=== PATIENT | female | born 1995 | race Hispanic/Latino ===

== ENCOUNTER 2024-12-02 09:35 | Day surgery (SDC) | payer OTHER, SELFPAY ==
[2024-11-26 14:52] VITALS: BMI 42.1
[2024-11-26 15:00] VITALS: BMI 42.1
[2024-12-02] VITALS (11 sets, daily range): BP systolic 113–135; BP diastolic 73–86; PULSE 83–102; RESP 12–22; TEMP 35.8–36.8; O2SAT 95–100; BMI 42.1
--- NOTE | 2024-12-02 | PATH_ITS ---
[facility] Accession Number: [id number] No. of containers..01 Tissue . 01 Material submitted: . uterus - UTERUS, BILATERAL FALLOPIAN TUBES . 01 Diagnosis: UTERUS AND BILATERAL FALLOPIAN TUBES; HYSTERECTOMY AND BILATERAL SALPINGECTOMY: Uterine weight: 520 grams. Mixed phase endometrium. - Negative for hyperplasia, atypia, or malignancy. Benign leiomyomas up to 4.4 cm in greatest diameter, without significant cytologic atypia, increased cellularity, increased mitotic activity, or necrosis. Benign bilateral fallopian tubes. - Negative for atypia or malignancy. [facility] 12/05/2024 1557 Local . 01 Electronically signed: . Edi Alberto MD, Pathologist NPI- [id number] . 01 Gross description: . Received in formalin labeled with two patient identifiers and uterus, bilateral fallopian tubes, and consists of a morcellated uterus with two detached fallopian tubes, one of which has a fimbriated end. The uterine corpus is severely fragmented and aggregates 18.5 x 17.2 x 6.5 cm (520 grams). No cervix is identified. The tissue fragments are partially surfaced by a pastrana-pink, smooth, glistening, slightly nodular, serosal surface. The myometrium is severely fragmented measuring up to 2.1 cm in thickness with multiple, white, whorled, well-circumscribed nodules ranging from 0.4 to 4.4 cm in greatest dimension. The nodules replace approximately 85% of the myometrial parenchyma. Further sectioning of the nodules shows no areas of cystic changes or necrosis. . Also received in the same container are two detached fallopian tubes. The first measures 5.2 cm in length by 0.4 cm in diameter and has a fimbriated end. Sectioning of the fallopian tube shows a 0.3 cm stellate lumen. The second detached fallopian tube is not fimbriated and has a 5.2 cm in lenght by 0.4 cm in diameter dimension. Sectioning shows a 0.3 cm stellate lumen. . Apparel Rental Clerk sections are submitted as labeled: A1-A2: Full thickness endomyometrium (composite section). A3: Full thickness endomyometrium. A4-A7: Apparel Rental Clerk sections of myometrial nodules (4 sections in each cassette). A8: Fimbriated fallopian tube 1 (fimbriated end entirely submitted). A9: Unfimbriated fallopian tube 2 sales representative trainee sections). ([id number]) /EDWIN 12/03/2024 0911 Local . 01 Pathologist provided ICD-10: D25.9, N94.10, Z30.432 . 01 CPT . 654716 Specimen Comment: A courtesy copy of this report has been sent to [phone] Performed at: [address] [facility] [address] [address], [place], [place] [id number] MD Solo Gómez MD Phone: [phone]
[2024-12-02] MEDS: LACTATED RINGERS 1,000 ML 21 ML IV ×3 (09:55→12:14)
--- NOTE | 2024-12-02 10:13 | PM.PREOP ---
Pre-operative Note Interval Note History & Physical reviewed/Exam performed by Physician: Yes Changes to H&P: No
[2024-12-02] MEDS: ACETAMINOPHEN 325 MG TABLET 975 MG PO (10:16)
[2024-12-02] MEDS: SCOPOLAMINE 1 PATCH TOP (10:16)
[2024-12-02] MEDS: CEFAZOLIN VIAL 3 GM in SODIUM CHLORIDE 0.9% 100 ML IV (10:44)
--- NOTE | 2024-12-02 11:25 | SUR.OPER ---
Lithotomy on padded OR bed. Ahtanum Pad Positioner under torso. Head on pillow, arms padded and tucked at sides. bed extension placed on bilateral sides. Legs secured in padded yellow fins stirrups.
[2024-12-02] MEDS: BUPIVACAINE 0.5% W/ EPI (PF) 30 ML VIAL INJ (11:37)
[2024-12-02] MEDS: ROPIVACAINE 0.2% PF 2 MG/ML 20ML AMP 20 ML INJ (12:24)
--- NOTE | 2024-12-02 12:26 | SUR.OPER ---
Verified with patient and surgeon prior to surgery about removal of IUD. Both patient and surgeon in agreement.
--- NOTE | 2024-12-02 13:17 | P.OP_ITS ---
Operative Date/Time/Diagnoses Date of procedure: 12/02/24 Time of procedure: 13:18 Pre-op diagnosis: Large uterine fibroids Post-op diagnosis: same Procedure & Clinicians Procedure: Laparoscopic supracervical hysterectomy with bilateral salpingectomy Same procedure as scheduled: Yes Indications: Pressure sensation from large uterine fibroids Surgeon: Orquidea Blackwood Purchasing Coordinator: Yelena Weston Click Yes if Unassisted: No Anesthesia Type: General Operative Notes Findings: Enlarged uterus with multiple uterine fibroids. Normal tubes and ovaries. No evidence of endometriosis. No scar tissue. Normal-appearing appendix. Normal bowel surface. Closure Type: primary Specimen(s): other (Uterus without the cervix) Estimated Blood Loss (mL): 400 Blood products transfused: none Procedure in detail: Patient is brought to the operating room where she underwent general anesthesia and placed in low [facility] stirrups. She was prepped and draped in the usual sterile fashion. A check list was reviewed with the staff in the room prior to beginning of the case. Patient had pulsatile stockings in place and functional. 3 g of Ancef were in prior to beginning of the case.. A Shultz catheter was placed. A single-tooth tenaculum was placed on the anterior lip of the cervix and the cervix dilated to a #6 Hegar dilator. The uterine manipulator was placed through the cervix into the uterus with the balloon inflated with 3 mL of air. The area of the umbilical incision and the 5 mm right and left lower quadrant incisions were injected with Marcaine. An incision was made with scalpel. A 5 mm trocar placed under direct visualization without difficulty. There did not appear to be any damage is placement of the trocar. The right and left lower quadrant incisions were made with the scalpel and the trochars placed without damage to internal structures. The power seal were used to cauterize the along the mesosalpinx followed by the round ligaments on both sides. The fallopian tubes were cauterized across the junction to the uterus and removed through the trocar. Sequential bites were taken down the broad ligaments. The uterine arteries were cauterized. An incision was made above the level bladder pushing the bladder away from the cervix. The FRANK loop was placed around the uterus and the uterus was amputated above the level of the bladder. Bleeding was controlled with the power seal. The cautery spatula was used to cauterize in the endocervical canal. A supracervical incision was made and an 11 mm port placed. A 15 mm Endo Catch bag was placed in the abdomen. The uterus was placed in the bag and brought up through the suprapubic port site. The Nathan O was placed. The uterus was hand morselized. The abdomen was reinsufflated and perclot was placed over the cervical stump so that adequate hemostasis was noted. The trochars were removed and the CO2 allowed escape from the abdomen. The fascia layer of the suprapubic site was repaired with 0 Polysorb suture. A subcutaneous stitch with 2 0 Vicryl was used to close the fat layer. Skin was closed with 4-0 Monocryl suture at the suprapubic site and the other 3 sites. The patient went to recovery room in good condition. Counts of instruments and sponges were correct. Dr. Weston was present throughout the case to assist with holding the camera, retracting, cauterizing and cutting the structures on the left side of the patient, as well as assisting with morselization of the uterus. Complications: none Post-operative Condition: stable Disposition: Acute Care Plan for aftercare: Monitor for any intra-abdominal bleeding. Home in a.m. if stable.
[2024-12-02] MEDS: OXYCODONE IR 5 MG TABLET PO ×3 (13:40→20:21)
[2024-12-02] MEDS: ACETAMINOPHEN 325 MG TABLET 650 MG PO ×2 (14:32→20:21)
[2024-12-02] MEDS: KETOROLAC 30 MG/ML VIAL IV (17:33)
[2024-12-02] MEDS: LACTATED RINGERS 1,000 ML 100 ML IV (19:30)
[2024-12-02] MEDS: DOCUSATE 100 MG CAPSULE 200 MG PO (20:20)
[2024-12-02] MEDS: MORPHINE 2 MG/ML INJ IV (21:50)
[2024-12-03] MEDS: KETOROLAC 30 MG/ML VIAL IV ×2 (00:02→05:28)
[2024-12-03] MEDS: OXYCODONE IR 5 MG TABLET PO ×4 (00:07→13:30)
[2024-12-03] MEDS: ACETAMINOPHEN 325 MG TABLET 650 MG PO ×2 (01:36→09:36)
[2024-12-03] MEDS: LACTATED RINGERS 1,000 ML 100 ML IV (05:27)
[2024-12-03 06:04] LABS: Add Manual Diff / Slide Review NO; Basophils Absolute Auto 0 /uL (0-100); Basophils Percent Auto 0.4 % (0-2); Eosinophils Absolute Auto 0 /uL (0-450); Eosinophils Percent Auto 0.2 % (2-4); Hematocrit 36.7 % (36-46); Hemoglobin 12.3 g/dL (12.0-16.0); Lymphocytes Absolute Auto 1800 /uL (1100-4500); Lymphocytes Percent Auto 18.6 % (25-40); Mean Corpuscular HGB Conc 33.4 % (30-36); Mean Corpuscular Hemoglobin 25.4 PG (26-34); Monocytes Absolute Auto 700 /uL (0-900); Monocytes Percent Auto 7.9 % (3-14); Neutrophils Absolute Auto 6900 /uL (1500-7000); Neutrophils Percent Auto 72.9 % (50-75); Platelet Count 214 X10^3/uL (150-400); Red Blood Cell Count 4.83 X10^6/uL (4.0-5.2); Red Cell Distribution Width 14.3 % (11.6-14.8); White Blood Cell Count 9.5 X10^3/uL (4.5-11.0)
--- NOTE | 2024-12-03 08:02 | PM.DS.IH.1 ---
History of Present Illness History of Present Illness Date Patient Seen: 12/03/24 Time Patient Seen: 08:02 Date of Onset of Symptoms: 12/02/24 Chief complaint: DEPORTATION EXAMINER *OPB* Narrative: Status post laparoscopic supracervical hysterectomy with bilateral salpingectomy Discharge Providers Provider Discharge Date: 12/03/24 Primary care physician: Cassius Grady MD Discharge provider: Orquidea Blackwood MD Summary Hospital Course Discharge Diagnosis: Uterine fibroids, status post laparoscopic supracervical hysterectomy Hospital Course: Patient underwent a laparoscopic supracervical hysterectomy with bilateral salpingectomy on 12/02/2024 Status at Discharge Cognitive/behavioral status at discharge: oriented Functional status at discharge: independent ambulation Overall status at discharge: patient is progressing back to baseline Time Spent with Patient Time spent: Less than 30 minutes Exam Vital Signs (past 8 hours): Oxygen Delivery Method Room Air Oxygen Flow Rate 0 Narrative Exam Narrative: Patient's abdomen is soft, with minimal tenderness. Her incisions are clean, dry, intact. Extremities without edema and nontender. Objective Labs 12/03/24 05:20 Labs: Laboratory Results - last 24 hr 12/03/24 05:20 WBC 9.5 RBC 4.83 Hgb 12.3 Hct 36.7 MCV 76.0 L MCH 25.4 L MCHC 33.4 RDW 14.3 Plt Count 214 Neut % (Auto) 72.9 Lymph % (Auto) 18.6 L Whiteside % (Auto) 7.9 Eos % (Auto) 0.2 L Baso % (Auto) 0.4 Neut # (Auto) 6900 Lymph # (Auto) 1800 Whiteside # (Auto) 700 Eos # (Auto) 0 Baso # (Auto) 0 PFSH Social History household members: family Smoking Status: Never smoker alcohol intake: never Discharge Assessment & Plan Assessment and Plan Assessment: Status post laparoscopic supracervical hysterectomy with bilateral salpingectomies stable. Plan of Treatment: Discharge home. Patient will be contacted by telephone on December 13 for postop appointment. She has a 6 week postop appointment scheduled. Precautions reviewed with the patient to call for fevers, bleeding, pain not controllable by pain medicine or any other concerns. Discharge Plan Discharge Plan Patient Disposition: Home Discharge orders & Medications Discharge Orders: Discharge (Order); Ordered 12/03/24 Ordered By: Orquidea Blackwood Prescriptions: Continued sumatriptan succinate 50 mg tablet 50 mg PO ONCE phentermine 37.5 mg capsule 37.5 mg PO DAILY Rx Instructions: must administer 30 minutes before or 1-2 hours after breakfast oxycodone 5 mg tablet 5 mg PO Q4H PRN (Reason: pain) Qty: 20 0RF Discontinued Mirena 21 mcg/24 hr (8 yrs) 52 mg intrauterine device 1 device intrauterine 1XD fluconazole 150 mg tablet 150 mg PO DAILY Follow up/Referrals: Cassius Grady MD [Primary Care Provider] - Orquidea Blackwood MD [Physician] - (Patient has a telehealth appointment on 12/13/2024, and 6 week postop appointment already scheduled) Diet/Activity/Treatments Diet: Regular Activity: Do not drive within 4 hours of taking narcotic pain medicine Skin/Wound/Dressing Care Report to your healthcare provider any signs of infection, such as:: chills, fever and increased pain Visit Report/Discharge Packet Instructions: DI for Hysterectomy, DI for Laparoscopy Stand Alone Forms: Patient Portal/API, Surgery Discharge Discharge Data Primary Care Provider: Cassius Grady Attending Provider: Orquidea Blackwood Quality VTE Deep Vein Thrombosis/Pulmonary Embolism Present on Admission: No IH PROFEE Charge Codes Discharge inpatient/observation: [id number]
[2024-12-03] MEDS: DOCUSATE 100 MG CAPSULE 200 MG PO (09:35)
--- NOTE | 2024-12-03 12:22 | CM.DANOTE ---
DCP Assessment note pt is a 29y F here POD 1 from lap hysterectomy with Dr. Blackwood. PCP Cassius Grady Paybrea Gomes healthy options and self pay RESEARCH CONSULTANT reviewed EMR. Per chart review, pt cleared to dc today home with family support and OP f/u. RESEARCH CONSULTANT met with pt in room. pt accompanied by mult family members at bedside. pt is indep/active at baseline. Lives with partner in [place]. Asked about the FMLA paperwork provider agreed to complete for partner to care for pt post op. RESEARCH CONSULTANT found FMLA paperwork in chart completed and handed to pt in room. Pt appreciative. Deny other needs/questions. P: No identified barriers to safe dc home with family support/to transport in POV and OP f/u at this time. CM team will continue to follow as needed BECKI Mosley Discharge Planning/Care Management CM Discharge Assessment Start: 12/03/24 12:19 Freq: Status: Active Protocol: Document 12/03/24 12:19 (Rec: 12/03/24 12:22 [id number]) Discharge Planning Assessment Assigned Cooker Sulfate BECKI Richard DPOA/Assigned Designee Name mother Kirkpatrick Contact Information [phone] Advance Directives? No History Provided By Patient,Family Member Prior Living Arrangements House Household Members significant other,family Type of transporation used prior to Drives own vehicle admit Independent with ADL's Yes Is patient alert and oriented? Yes Barriers to Discharge No Discharge Plan Home Transportation Arrangement family in POV Referrals Initiated None needed Review Status In Process Please Provide Date Initial DC 12/03/24 Assessment Was Performed Next Review Type Continued Stay Review Pre-Anesthesia Assessment Start: 11/26/24 14:52 Freq: Status: Active Protocol: Document 11/26/24 14:52 CAB (Rec: 11/26/24 14:59 CAB [id number]) Pre-Anesthesia Assessment PAC Comment Chart review 11/26/24 Patient Information Reviewed Via Chart Review Primary Care Provider Cassius Grady Seen Specialist in Last 12 Months Yes Specialist Seen Order Schedule Clerk Primary Language Sierra Leonean Painter Structural Steel Required No Height 172.72 cm Weight 125.645 kg Body Mass Index (BMI) 42.1 Anesthesia Review Requested No Core Blower No Smoking Status Current some day smoker History of Falling (Recent or History of No ) Patient is completely paralyzed or No completely immobile Mental Status Oriented to own ability Is patient on oxygen? No Currently Taking a Beta Alen No Anti-Coagulant Therapy No Bladder Pattern Incontinent, Stress Urinary Catheter Present No Hx Urinary Self Catheterization No Diabetes No Patient No Lactating No Comment LMP 11/18/24 Presence of External or Internal Medical Yes: IUD Devices Marital Status Unknown Patient Discharge Plan Description Return Home Document 11/26/24 15:00 CAB (Rec: 11/26/24 15:01 CAB [id number]) Pre-Anesthesia Assessment PAC Comment Chart review 11/26/24 Patient Information Reviewed Via Chart Review Primary Care Provider Cassius Grady Seen Specialist in Last 12 Months Yes Specialist Seen Order Schedule Clerk Primary Language [place] Leonean Painter Structural Steel Required No Height 172.72 cm Weight 125.645 kg Body Mass Index (BMI) 42.1 Anesthesia Review Requested No Core Blower No Smoking Status Current some day smoker History of Falling (Recent or History of No ) Patient is completely paralyzed or No completely immobile Mental Status Oriented to own ability Is patient on oxygen? No Currently Taking a Beta Alen No Anti-Coagulant Therapy No Bladder Pattern Incontinent, Stress Urinary Catheter Present No Hx Urinary Self Catheterization No Diabetes No Patient No Lactating No Comment LMP 11/18/24 Presence of External or Internal Medical Yes: IUD Devices Marital Status Unknown Patient Discharge Plan Description Return Home
--- NOTE | 2024-12-03 17:51 | PC.NURSE ---
Discharge: Pt d/c to home via auto with her family. She was voiding w/out problems. Tolerating diet w/out problems. Reports pain meds are effective. Dr. Blackwood in and gave d/c instructions. Vag flow is scant, no clots. Discharge packet given and reviewed. Pt already has her rx at home. Her questions were answered, had no concerns at time of d/c.
== END 2024-12-03 13:50 | disposition home or self-care (01) ==
LOC: OR 09:36 → AC 09:37
PROVIDERS: PCP Family Medicine; Referring Provider Specialist; Visit Provider Specialist
PROC: 0UT94ZL Resection of Uterus, Supracervical, Percutaneous Endoscopic Approach (ICD-10-PCS; CPT 58544; principal; 2024-12-02 10:45)
DX: D25.0 Submucous leiomyoma of uterus (principal); N94.10 Unspecified dyspareunia; F17.200 Nicotine dependence, unspecified, uncomplicated; E66.9 Obesity, unspecified; Z68.41 Body mass index [BMI] 40.0-44.9, adult
CPT/HCPCS: 58544; 36415; 81025; 85025; J0690; J1100; J1171; J1885; J2250; J2270; J2405; J2704; J2795; J3010